=== PATIENT | female | born 1985 | race Caucasian/White ===

== ENCOUNTER 2020-04-08 17:56 | Emergency (ER) | payer OTHER ==
[~2020-04-08] VITALS: Ht 149.9 cm; Wt 83.0 kg
[~2020-04-08 17:56] MED LIST: IBUP-1222 PO; OXYC1TAB14 PO
[2020-04-08] MEDS ORDERED: KETOROLAC 30 MG/1 ML IVPush ONE (19:00)
[2020-04-08] MEDS ORDERED: SODIUM CHLORIDE 0.9% 1,000ML IV ONE (19:00)
--- NOTE | 2020-04-08 19:00 | NUR ---
PT RESTING COMFORTABLY. VSS. NO NEEDS AT THIS TIME.
[2020-04-08] MEDS ORDERED: KETOROLAC 30 MG/1 ML ONE (19:10)
[2020-04-08 19:13] LABS: BASOPHILS % (AUTO) 0 % (0-1); EOSINOPHILS % (AUTO) 0 % (1-7); LYMPHOCYTES % (AUTO) 10 % (22-44); MEAN CORPUSCULAR HEMOGLOBIN 28.7 pg (27.0-34.8); MEAN CORPUSCULAR HGB CONC 34.1 g/dL (32.4-35.8); MEAN PLATELET VOLUME 6.8 fL (7.4-10.4); MONOCYTES % (AUTO) 8 % (2-9); NEUTROPHILS % (AUTO) 81 % (42-75); PLATELET COUNT 301 x10^3/uL (130-400); RED BLOOD COUNT 4.45 x10^6/uL (3.82-5.3); RED CELL DISTRIBUTION WIDTH 14.6 % (9.6-15.2)
[2020-04-08 19:23] LABS: MD NO
[2020-04-08 19:24] LABS: ALBUMIN 3.1 g/dL (3.4-5.0); ANION GAP 9 mmol/L (5-15); CALCIUM 8.4 mg/dL (8.5-10.1); CHLORIDE 106 mmol/L (98-107); CREATININE 0.78 mg/dL (0.55-1.02)
[2020-04-08 19:35] LABS: MICROSCOPIC INDICATED
--- NOTE | 2020-04-08 21:22 | NUR ---
REPORT FROM EDILIA ALCANTAR. PT RESTING ON GURNEY. NO DISTRESS. AWAITING LAB RESULTS. PT STATES HER PAIN IS BETTER AFTER PAIN MEDICATION.
[2020-04-08 21:31] LABS: ALANINE AMINOTRANSFERASE 26 U/L (12-78); ALBUMIN 3.1 g/dL (3.4-5.0)
[2020-04-08 21:33] LABS: ALKALINE PHOSPHATASE 104 U/L (45-117); BILIRUBIN,TOTAL 0.4 mg/dL (0.2-1.0); TOTAL PROTEIN 7.6 g/dL (6.4-8.2)
[2020-04-08 21:35] LABS: BILIRUBIN, DIRECT < 0.1 mg/dL (0.1-0.2); BILIRUBIN,INDIRECT 0.3 mg/dL (0.0-2.0)
[2020-04-08 22:08] VITALS: BP 128/80
== END 2020-04-08 22:10 | disposition home or self-care (01) ==
LOC: ED 18:30
DX: J06.9 Acute upper respiratory infection, unspecified (principal); Z20.822 Contact with and (suspected) exposure to COVID-19; B34.9 Viral infection, unspecified; R10.9 Unspecified abdominal pain; R30.9 Painful micturition, unspecified
CPT/HCPCS: 36415; 71045; 80048; 80076; 81001; 82040; 83690; 84703; 85025; 85379; 87635; 96361; 96374; 99284; J1885; J7030